=== PATIENT | male | born 1940 | race Two or more races ===

== ENCOUNTER 2023-07-09 13:45 | Inpatient (IN) | payer MEDICARE ==
[~2023-07-09] VITALS: Ht 182.9 cm; Wt 124.8 kg
[2023-07-09] MEDS ORDERED: FUROSEMIDE 40 MG/4 ML VIAL IV ONE (14:30)
[2023-07-09] MEDS ORDERED: FUROSEMIDE 40 MG/4 ML VIAL ONE (14:35)
[2023-07-09] MEDS ORDERED: FURO-145 PO (14:41)
[2023-07-09] MEDS ORDERED: POTA-10 PO (14:41)
[2023-07-09] MEDS ORDERED: LISI20TA30 PO (14:41)
[2023-07-09 14:42] LABS: BASOPHILS # (AUTO) 0.1 K/uL (0.0-0.2); BASOPHILS % (AUTO) 0.7 % (0.0-2.0); EOSINOPHILS # (AUTO) 0.2 K/uL (0.0-0.7); EOSINOPHILS % (AUTO) 2.4 % (0.0-6.0); HEMATOCRIT 47 % (39-51); HEMOGLOBIN 15.4 g/dL (13.5-17.5); LYMPHOCYTES # (AUTO) 0.9 K/uL (0.8-4.8); LYMPHOCYTES % (AUTO) 10.6 % (20.0-44.0); MEAN CORPUSCULAR HEMOGLOBIN 29 PG (26.0-33.0); MEAN CORPUSCULAR HGB CONC 33 g/dl (31.0-36.0); MEAN CORPUSCULAR VOLUME 90 fL (80-96); MONOCYTES # (AUTO) 0.9 K/uL (0.1-1.30); MONOCYTES % (AUTO) 10.7 % (2.0-12.0); NEUTROPHILS # (AUTO) 6.5 K/uL (1.8-8.9); NEUTROPHILS % (AUTO) 75.6 % (43.0-81.0); PLATELET COUNT (AUTO) 190 K/uL (150-450); RED BLOOD CELL COUNT(AUTO) 5.24 MIL/uL (4.5-6.0); RED CELL DISTRIBUTION WIDTH 15.2 % (11.5-15.0); WHITE BLOOD COUNT (AUTO) 8.6 K/uL (4.3-11.0)
[2023-07-09 15:19] LABS: CALCIUM, SERUM 9.2 mg/dL (8.5-10.1); CARBON DIOXIDE 26 mmol/L (21-32); CHLORIDE 99 mmol/L (98-107); CREATININE 1.1 mg/dL (0.6-1.3); GLUCOSE 116 mg/dL (74-106); POTASSIUM 4.5 mmol/L (3.5-5.1); SODIUM SERUM 136 mmol/L (136-145); UREA NITROGEN, BLOOD 20 mg/dL (7-18)
[2023-07-09] MEDS ORDERED: PIPERACI/TAZO 3.375GM/D5W 50ML PB IV ONE (15:28)
[2023-07-09 15:29] LABS: INR 1.17 (0.91-1.10); PARTIAL THROMBOPLASTIN TIME 33.1 SEC (24.3-34.3); PROTHROMBIN TIME 12.2 SECS (9.2-11.1)
[2023-07-09] MEDS ORDERED: VANCOMYCIN 1 GM in IV D5W 250 ML IV ONE (15:30)
[2023-07-09] MEDS ORDERED: PIPERACILLIN /TAZOBACTAM 3.375 G in IV D5W 50 ML IV ONE (15:30)
[2023-07-09 15:32] LABS: ALANINE AMINOTRANSFERASE 18 U/L (12-78); ALBUMIN 3.3 g/dL (3.4-5.0); ALKALINE PHOSPHATASE 102 U/L (46-116); ASPARTATE AMINOTRANSFERASE 21 U/L (15-37); BILIRUBIN,DIRECT 0.5 mg/dL (0.0-0.2); BILIRUBIN,TOTAL 2.1 mg/dL (0.2-1.0); NT-PRO BNP 2952 pg/mL (0-125); TOTAL PROTEIN, SERUM 6.7 g/dL (6.4-8.2)
[2023-07-09 16:00] LABS: LACTIC ACID 2.3 mmol/L (0.4-2.0)
[2023-07-09] MEDS ORDERED: MORPHINE SULFATE INJ 2 MG/ML DISP.SYRIN IV ONE (17:30)
[2023-07-09] MEDS ORDERED: MORPHINE SULFATE INJ 4 MG/ML DISP.SYRIN ONE (18:18)
[2023-07-09] MEDS ORDERED: MAGNESIUM HYDROXIDE 30 ML UDC PO PRN (19:30)
[2023-07-09] MEDS ORDERED: MAG HYDROX/AL HYDROX/SIMETH 30 ML UDC PO PRN (19:30)
[2023-07-09] MEDS ORDERED: ZOLPIDEM TARTRATE 5 MG TABLET PO PRN (19:30)
[2023-07-09] MEDS ORDERED: Z GUARD REMEDY 4 OZ OINT TP PRN (19:30)
[2023-07-09] MEDS ORDERED: ONDANSETRON HCL/PF 4 MG/2 ML VIAL IVP PRN (19:30)
[2023-07-09 22:20] VITALS: BP 107/83; TEMP 98.2; O2SAT 98
[2023-07-09] MEDS ORDERED: VANCOMYCIN 1 GM in IV D5W 250 ML IV SCH (23:00)
[2023-07-09] MEDS: ENOXAPARIN SODIUM 40 MG/0.4 ML DISP.SYRIN SQ SCH (23:21)
[2023-07-10] VITALS: BP_SYST 102; BP_SYST 107; BP_DIAS 83; TEMP 98.2; O2SAT 98
[2023-07-10] MEDS: PIPERACILLIN /TAZOBACTAM 3.375 G in IV D5W 50 ML IV SCH ×3 (00:53→12:07)
[2023-07-10 04:00] VITALS: BP 5/74; TEMP 98.2; O2SAT 97
[2023-07-10 07:10] LABS: BASOPHILS % (AUTO) 0.5 % (0.0-2.0); EOSINOPHILS # (AUTO) 0.2 K/uL (0.0-0.7); EOSINOPHILS % (AUTO) 2.3 % (0.0-6.0); HEMATOCRIT 42 % (39-51); HEMOGLOBIN 13.6 g/dL (13.5-17.5); LYMPHOCYTES # (AUTO) 0.6 K/uL (0.8-4.8); LYMPHOCYTES % (AUTO) 7.4 % (20.0-44.0); MEAN CORPUSCULAR HEMOGLOBIN 29 PG (26.0-33.0); MEAN CORPUSCULAR HGB CONC 33 g/dl (31.0-36.0); MEAN CORPUSCULAR VOLUME 88 fL (80-96); MONOCYTES # (AUTO) 1.1 K/uL (0.1-1.30); MONOCYTES % (AUTO) 13.8 % (2.0-12.0); NEUTROPHILS # (AUTO) 6.1 K/uL (1.8-8.9); PLATELET COUNT (AUTO) 158 K/uL (150-450); RED BLOOD CELL COUNT(AUTO) 4.71 MIL/uL (4.5-6.0); RED CELL DISTRIBUTION WIDTH 14.9 % (11.5-15.0)
[2023-07-10 07:29] LABS: CALCIUM, SERUM 8.6 mg/dL (8.5-10.1); CREATININE 1.2 mg/dL (0.6-1.3); MAGNESIUM 2.3 mg/dL (1.8-2.4); PHOSPHORUS 4.8 mg/dL (2.5-4.9)
[2023-07-10 08:00] VITALS: BP 97/74; TEMP 96.2; O2SAT 96
[2023-07-10] MEDS ORDERED: FUROSEMIDE 40 MG/4 ML VIAL IV SCH (09:00)
[2023-07-10] MEDS: PANTOPRAZOLE 40 MG TABLET.DR PO SCH (09:10)
[2023-07-10] MEDS: ACETAMINOPHEN 325 MG TABLET PO PRN (12:06)
[2023-07-10] MEDS: FUROSEMIDE 40 MG/4 ML VIAL IV SCH ×2 (12:06→16:53)
[2023-07-10 20:00] VITALS: BP 95/65; TEMP 97.3; O2SAT 97
[2023-07-10] MEDS: DOXYCYCLINE 100 MG in IV D5W 100 ML IV SCH (21:07)
[2023-07-10] MEDS: ENOXAPARIN SODIUM 40 MG/0.4 ML DISP.SYRIN SQ SCH (21:10)
[2023-07-10] MEDS: MORPHINE SULFATE INJ 2 MG/ML DISP.SYRIN IV PRN (21:25)
[2023-07-11] VITALS: BP 111/67; TEMP 98.2; O2SAT 97
[2023-07-11 04:00] VITALS: BP 112/72; TEMP 98.6; O2SAT 97
[2023-07-11 07:00] VITALS: BP 106/64; TEMP 98.4; O2SAT 96
[2023-07-11] MEDS: LISINOPRIL (20MG) 20 MG TABLET PO SCH (09:00)
[2023-07-11] MEDS: FUROSEMIDE 40 MG/4 ML VIAL IV SCH ×2 (10:08→17:28)
[2023-07-11] MEDS: PANTOPRAZOLE 40 MG TABLET.DR PO SCH (10:08)
[2023-07-11] MEDS: DOXYCYCLINE 100 MG in IV D5W 100 ML IV SCH ×2 (10:10→22:22)
[2023-07-11] MEDS: THERAHONEY GEL 1.5 OZ TUBE TP SCH (10:18)
[2023-07-11 12:01] VITALS: BP 113/67; TEMP 98.6; O2SAT 97
[2023-07-11 16:00] VITALS: BP 106/77; TEMP 98.6; O2SAT 98
[2023-07-11] MEDS: PSYLLIUM SEED 1 PKT PACKET PO SCH (16:10)
[2023-07-11 20:00] VITALS: BP 118/70; TEMP 98.3; O2SAT 94
[2023-07-11] MEDS: ACETAMINOPHEN 325 MG TABLET PO PRN (20:30)
[2023-07-11] MEDS: MORPHINE SULFATE INJ 2 MG/ML DISP.SYRIN IV PRN (21:26)
[2023-07-11] MEDS: ENOXAPARIN SODIUM 40 MG/0.4 ML DISP.SYRIN SQ SCH (22:17)
[2023-07-12] VITALS: BP 109/66; TEMP 98.1; O2SAT 95
[2023-07-12 04:00] VITALS: BP 122/76; TEMP 97.5; O2SAT 97
[2023-07-12] MEDS: MORPHINE SULFATE INJ 2 MG/ML DISP.SYRIN IV PRN (05:14)
[2023-07-12] MEDS: ACETAMINOPHEN 325 MG TABLET PO PRN (06:46)
[2023-07-12 07:00] VITALS: BP 124/88; TEMP 97.9; O2SAT 95
[2023-07-12] MEDS: PANTOPRAZOLE 40 MG TABLET.DR PO SCH (08:21)
[2023-07-12] MEDS: FUROSEMIDE 40 MG/4 ML VIAL IV SCH ×3 (08:55→15:59)
[2023-07-12] MEDS: POTASSIUM CHLORIDE 20 MEQ TAB.PRT.SR PO SCH ×3 (08:56→10:03)
[2023-07-12] MEDS: LISINOPRIL (20MG) 20 MG TABLET PO SCH (08:56)
[2023-07-12] MEDS: PSYLLIUM SEED 1 PKT PACKET PO SCH (08:56)
[2023-07-12] MEDS: DOXYCYCLINE 100 MG in IV D5W 100 ML IV SCH (10:03)
[2023-07-12] MEDS: THERAHONEY GEL 1.5 OZ TUBE TP SCH (10:23)
[2023-07-12] MEDS ORDERED: oxyCODONE/APAP (5/325 MG) 1 UDTAB TABLET PO PRN (10:30)
[2023-07-12 12:00] VITALS: BP 117/67; TEMP 98; O2SAT 96
[2023-07-12] MEDS ORDERED: POTASSIUM CHLORIDE 20 MEQ TAB.PRT.SR PO ONE (12:00)
[2023-07-12] MEDS ORDERED: PANT40TA49 PO (12:45)
[2023-07-12] MEDS ORDERED: DOXY-326 PO (12:45)
[2023-07-12] MEDS ORDERED: HYDR-3972 PO (16:33)
== END 2023-07-12 17:30 | DRG 291 ==
LOC: ER 13:49 → TELE 21:45
PROVIDERS: ADMIT Student in an Organized Health Care Education/Training Program; ATTEND Internal Medicine
DX: I11.0 Hypertensive heart disease with heart failure (principal); I50.31 Acute diastolic (congestive) heart failure; J96.01 Acute respiratory failure with hypoxia; E44.1 Mild protein-calorie malnutrition; E87.20 Acidosis, unspecified; L03.115 Cellulitis of right lower limb; J98.11 Atelectasis; L03.116 Cellulitis of left lower limb; J90 Pleural effusion, not elsewhere classified; I48.91 Unspecified atrial fibrillation; Z79.899 Other long term (current) drug therapy; Z98.890 Other specified postprocedural states; N20.0 Calculus of kidney; Z87.891 Personal history of nicotine dependence; Z98.1 Arthrodesis status; I87.8 Other specified disorders of veins; L97.519 Non-pressure chronic ulcer of other part of right foot with unspecified severity; I45.10 Unspecified right bundle-branch block; Z87.442 Personal history of urinary calculi
CPT/HCPCS: 36415; 71045-TC; 80048-TC; 80076-TC; 83605-TC; 83735-TC; 83880; 84100-TC; 84484-TC; 85025-TC; 85730-TC; 87040-TC; 93307-TC; 93970-TC; 97110-TC; 97530-TC; A4223; A6253; A6403; C9803; G0378; J1650; J1940; J2270; J2543; J3370; J3490; J7060

== ENCOUNTER 2024-05-03 10:42 | Inpatient (IN) | payer MEDICARE, OTHER ==
[~2024-05-03] VITALS: Ht 182.9 cm; Wt 96.2 kg
[~2024-05-03 10:42] MED LIST: DOXY-326 PO; FURO-145 PO; HYDR-3972 PO; LISI20TA30 PO; PANT40TA49 PO; POTA-10 PO
[2024-05-03] MEDS: IV NS 0.9% 500 ML BAG IV ONE (11:05)
[2024-05-03] MEDS: IV NS 0.9% 1,000 ML IV ONE (11:16)
[2024-05-03 11:19] LABS: BASOPHILS # (AUTO) 0.1 K/uL (0.0-0.2); BASOPHILS % (AUTO) 0.8 % (0.0-2.0); EOSINOPHILS % (AUTO) 0.3 % (0.0-6.0); HEMATOCRIT 42 % (39-51); HEMOGLOBIN 14.1 g/dL (13.5-17.5); LYMPHOCYTES # (AUTO) 0.9 K/uL (0.8-4.8); LYMPHOCYTES % (AUTO) 8.3 % (20.0-44.0); MEAN CORPUSCULAR HEMOGLOBIN 31 PG (26.0-33.0); MEAN CORPUSCULAR HGB CONC 34 g/dl (31.0-36.0); MEAN CORPUSCULAR VOLUME 91 fL (80-96); MONOCYTES # (AUTO) 1.4 K/uL (0.1-1.30); MONOCYTES % (AUTO) 13.1 % (2.0-12.0); NEUTROPHILS # (AUTO) 8.1 K/uL (1.8-8.9); NEUTROPHILS % (AUTO) 77.5 % (43.0-81.0); PLATELET COUNT (AUTO) 193 K/uL (150-450); RED BLOOD CELL COUNT(AUTO) 4.56 MIL/uL (4.5-6.0); RED CELL DISTRIBUTION WIDTH 16.3 % (11.5-15.0); WHITE BLOOD COUNT (AUTO) 10.5 K/uL (4.3-11.0)
[2024-05-03 11:54] LABS: CALCIUM, SERUM 9.3 mg/dL (8.5-10.1); CARBON DIOXIDE 26 mmol/L (21-32); CHLORIDE 102 mmol/L (98-107); CREATININE 0.9 mg/dL (0.6-1.3); GLUCOSE 201 mg/dL (74-106); POTASSIUM 4.4 mmol/L (3.5-5.1); SODIUM SERUM 138 mmol/L (136-145); UREA NITROGEN, BLOOD 28 mg/dL (7-18)
[2024-05-03] MEDS ORDERED: ACETAMINOPHEN 325 MG TABLET PO PRN (12:30)
[2024-05-03] MEDS ORDERED: ZOLPIDEM TARTRATE 5 MG TABLET PO PRN (12:30)
[2024-05-03] MEDS ORDERED: ONDANSETRON HCL/PF 4 MG/2 ML VIAL IVP PRN (12:30)
[2024-05-03] MEDS ORDERED: MAG HYDROX/AL HYDROX/SIMETH 30 ML UDC PO PRN (12:30)
[2024-05-03] MEDS ORDERED: MAGNESIUM HYDROXIDE 30 ML UDC PO PRN (12:30)
[2024-05-03] MEDS ORDERED: Z GUARD REMEDY 4 OZ OINT TP PRN (12:30)
[2024-05-03 15:24] LABS: APPEARANCE,URINE CLOUDY (CLEAR); BILIRUBIN,URINE NEGATIVE (NEGATIVE); BLOOD, URINE 2+ Ery/uL (NEGATIVE); COLOR,URINE YELLOW (YELLOW); KETONES,URINE NEGATIVE (NEGATIVE); LEUKOCYTE ESTERASE ,URINE 3+ (NEGATIVE); NITRITE, URINE NEGATIVE (NEGATIVE); PROTEIN,URINE 2+ mg/dl (NEGATIVE); UGLUCOSE NEGATIVE (NEGATIVE)
[2024-05-03 15:33] LABS: ADD URINE CULTURE YES; BACTERIA,URINE 3+ /HPF (None Seen); RBC,URINE 21-50 /HPF (0-2); SQUAMOUS EPITHELIAL CELL,UR 0-2 /HPF (None Seen); WBC,URINE 81-100 /HPF (0-3)
[2024-05-03 18:00] VITALS: BP 111/77; TEMP 98.2; O2SAT 96
[2024-05-03 20:00] VITALS: BP 120/79; TEMP 97.5; O2SAT 97
[2024-05-04 06:38] LABS: BASOPHILS # (AUTO) 0.1 K/uL (0.0-0.2); BASOPHILS % (AUTO) 0.9 % (0.0-2.0); EOSINOPHILS # (AUTO) 0.2 K/uL (0.0-0.7); HEMATOCRIT 38 % (39-51); HEMOGLOBIN 12.7 g/dL (13.5-17.5); LYMPHOCYTES # (AUTO) 1.5 K/uL (0.8-4.8); LYMPHOCYTES % (AUTO) 16.9 % (20.0-44.0); MEAN CORPUSCULAR HEMOGLOBIN 31 PG (26.0-33.0); MEAN CORPUSCULAR HGB CONC 34 g/dl (31.0-36.0); MEAN CORPUSCULAR VOLUME 92 fL (80-96); MONOCYTES # (AUTO) 1.1 K/uL (0.1-1.30); MONOCYTES % (AUTO) 12.9 % (2.0-12.0); NEUTROPHILS # (AUTO) 5.8 K/uL (1.8-8.9); NEUTROPHILS % (AUTO) 67.3 % (43.0-81.0); PLATELET COUNT (AUTO) 165 K/uL (150-450); RED BLOOD CELL COUNT(AUTO) 4.11 MIL/uL (4.5-6.0); RED CELL DISTRIBUTION WIDTH 16.1 % (11.5-15.0); WHITE BLOOD COUNT (AUTO) 8.7 K/uL (4.3-11.0)
[2024-05-04 07:24] LABS: CALCIUM, SERUM 8.4 mg/dL (8.5-10.1); CREATININE 0.6 mg/dL (0.6-1.3); MAGNESIUM 2.1 mg/dL (1.8-2.4); POTASSIUM 4.3 mmol/L (3.5-5.1)
[2024-05-04 08:00] VITALS: BP 100/73; TEMP 97.9; O2SAT 97
[2024-05-04] MEDS: ENSURE ENLIVE 237 ML LIQUID (VANILLA) PO SCH (08:20)
[2024-05-04] MEDS: PANTOPRAZOLE 40 MG TABLET.DR PO SCH (08:20)
[2024-05-04] MEDS: ENOXAPARIN SODIUM 40 MG/0.4 ML DISP.SYRIN SQ SCH (09:00)
[2024-05-04 16:00] VITALS: BP 114/68; TEMP 98.1; O2SAT 97
[2024-05-04 20:00] VITALS: BP 132/84; TEMP 98.6; O2SAT 96
[2024-05-05 07:30] VITALS: BP 120/71; TEMP 98.1; O2SAT 97
[2024-05-05 16:00] VITALS: BP 128/78; TEMP 99.6; O2SAT 97
[2024-05-05 20:00] VITALS: BP 110/72; TEMP 98.4; O2SAT 97
[2024-05-06 07:30] VITALS: BP 112/77; TEMP 98; O2SAT 97
== END 2024-05-06 15:00 | DRG 641 ==
LOC: ER 10:42 → MED 16:57
DX: R62.7 Adult failure to thrive (principal); I50.32 Chronic diastolic (congestive) heart failure; Z59.00 Homelessness unspecified; I11.0 Hypertensive heart disease with heart failure; K21.9 Gastro-esophageal reflux disease without esophagitis; Z87.891 Personal history of nicotine dependence; Z96.659 Presence of unspecified artificial knee joint; Z96.642 Presence of left artificial hip joint; R79.89 Other specified abnormal findings of blood chemistry
CPT/HCPCS: 36415; 80048-TC; 81001; 83735-TC; 84100-TC; 85025-TC; 87086-TC; 93307-TC; 97110-TC; 97530-TC; G0378; J1650